=== PATIENT | male | born 1995 | race Caucasian/White ===

== ENCOUNTER 2023-08-30 09:31 | Outpatient (REF) | payer OTHER, SELFPAY ==
[2023-08-30 09:48] LABS: MANUAL DIFF FLAG NO
[2023-08-30 09:58] LABS: Basophils Percent Auto 0.6 % (0-2); Eosinophils Percent Auto 0.6 % (0-4); Hematocrit 44.2 % (42.0-52.0); Hemoglobin 15.1 g/dl (14.0-18.0); Imm Gran Abs Auto 0.02 X10*3/uL (0.00-0.03); Imm Gran Pct Auto 0.3 % (0.0-0.4); Mean Corpuscular HGB Conc 34.2 g/dl (31.0-36.0); Mean Corpuscular Hemoglobin 29.7 pg (27.0-33.0); Mean Corpuscular Volume 86.8 fL (80.0-98.0); Mean Platelet Volume 9.6 fL (9.4-12.4); Monocytes Absolute Auto 0.5 X10*3/uL (0.1-1.2); Monocytes Percent Auto 7.4 % (2-11); Neutrophils Absolute Auto 4.3 x10*3/uL (2.0-8.3); Neutrophils Percent Auto 62.1 % (45-73); Platelet Count 264 X10*3/uL (160-400); Red Blood Count 5.09 X10*6/uL (4.60-5.80); Red Cell Distribution Width 13.5 % (11.0-16.0); White Blood Count 6.9 X10*3/uL (4.8-10.8)
[2023-08-30 10:28] LABS: Alanine Aminotransferase 11 U/L (0-40); Albumin Level 4.8 g/dL (3.5-5.0); Alkaline Phosphatase 60 U/L (39-117); Anion Gap 12 (12-20); Aspartate Amino Transferase 15 U/L (5-37); Bilirubin Total 1.5 mg/dL (0.0-1.0); Blood Urea Nitrogen 11 mg/dL (9-16); Calcium 9.9 mg/dL (8.4-10.2); Carbon Dioxide 28 mmol/L (22-29); Chloride 105 mmol/L (96-108); Cholesterol 186 mg/dL (<200); Estimated Glomerular Filt Rate > 60; Glucose Fasting 97 mg/dL (60-99); HDL Cholesterol 50 mg/dL (>40); LDL Cholesterol Calculated 124 mg/dL (<100); Potassium 4.4 mmol/L (3.3-5.1); Sodium 141 mmol/L (135-145); Total Protein 7.2 g/dL (6.5-8.0); Triglycerides 63 mg/dL (<150)
[2023-09-05 16:13] LABS: Testosterone, Free 91.4 pg/mL (35.0-155.0); Testosterone, Total 601 ng/dL (250-1100)
[2023-09-07 22:39] LABS: Estrogen 132 pg/mL (< OR = 404)
== END 2023-08-30 09:32 | disposition home or self-care (01) ==
LOC: HO.LAB 09:31
PROVIDERS: PCP Internal Medicine; Visit Provider Internal Medicine
DX: Z00.00 Encounter for general adult medical examination without abnormal findings (principal); R53.83 Other fatigue; E78.5 Hyperlipidemia, unspecified
CPT/HCPCS: 36415; 80053; 80061; 82672; 84402; 84403; 85025

== ENCOUNTER 2023-09-21 10:44 | Outpatient (REF) | payer OTHER, SELFPAY ==
--- NOTE | ~2023-09-21 | US_ITS ---
EXAMINATION: MM DIAGNOSTIC DIGITAL BREAST TOMOSYNTHESIS, BILATERAL US BREAST LIMITED, LEFT MAMMOGRAPHY: CLINICAL INFORMATION: 28-year-old male, retroareolar swelling left breast. History of gynecomastia as early teenager left side, with subsequent surgical resection of left breast tissue at age 15. No abnormalities right breast. Patient also has a fraternal twin sister who has endocrine disorder. COMPARISON: Mammography: None. Baseline examination. TECHNIQUE: Digital breast tomosynthesis is performed in both the craniocaudal and mediolateral oblique views along with computer-aided detection (CAD). Synthesized 2D images are generated from the tomosynthesis. FINDINGS: The breasts are almost entirely fatty (ACR BI-RADS breast composition Category a). There is left retroareolar breast tissue development, most consistent with left gynecomastia, moderate in severity. No suspicious masses, suspicious grouped calcifications, or areas of architectural distortion in either breast. No skin or axillary abnormalities. ULTRASOUND: CLINICAL INFORMATION: As above. COMPARISON: None TECHNIQUE: Targeted sonographic evaluation retroareolar left breast was performed using a high frequency linear transducer. Selected archived documentation. FINDINGS: LEFT BREAST: -There is moderate retroareolar gynecomastia present with normal breast tissue development. No suspicious masses, abnormal shadowing, fatty masses, cystic abnormalities, or edema within the soft tissue planes. US/US breast LT limited mamm only IMPRESSION: -There are no findings suspicious for malignancy in either breast. -There is moderate gynecomastia retroareolar location left breast. -Recommend clinical management. Patient states he takes no medications. Recommend evaluation of pituitary hormones, especially prolactin level, as well as thyroid panel. -Findings and recommendations discussed with the patient in detail. OVERALL ASSESSMENT: Mammography: BI-RADS 2 - Benign Findings Ultrasound: BI-RADS 2 - Benign Findings RECOMMENDATION: 1. Patient should be managed based on the clinical impression.
== END 2023-09-21 10:45 | disposition home or self-care (01) ==
LOC: HO.MAMMO 10:44
PROVIDERS: PCP Internal Medicine; Visit Provider Internal Medicine
DX: N62 Hypertrophy of breast (principal)
CPT/HCPCS: 76642; 77062; 77066

== ENCOUNTER → 2023-09-21 11:00 | Outpatient (BNV) | payer OTHER, SELFPAY | PROVIDERS: PCP Internal Medicine; Visit Provider Radiology Diagnostic Radiology | DX: N62 Hypertrophy of breast (principal) | CPT/HCPCS: 76642; 77062; 77066 ==

== ENCOUNTER 2023-09-27 07:30 | Outpatient (REF) | payer OTHER, SELFPAY ==
[2023-09-27 09:17] LABS: Thyroid Stimulating Hormone 0.84 uIU/mL (0.32-4.0)
[2023-09-28 16:54] LABS: Prolactin 11.9 ng/mL (2.0-18.0)
[2023-10-03 13:48] LABS: Testosterone, Total 592 ng/dL (250-1100)
[2023-10-03 20:23] LABS: Estrogen 154 pg/mL (< OR = 404)
== END 2023-09-27 07:31 | disposition home or self-care (01) ==
LOC: HO.LAB 07:30
PROVIDERS: PCP Internal Medicine; Visit Provider Internal Medicine
DX: N62 Hypertrophy of breast (principal); R53.83 Other fatigue
CPT/HCPCS: 36415; 82672; 84146; 84403; 84439; 84443

== ENCOUNTER 2024-01-16 09:22 | Outpatient (AMB) | payer OTHER, SELFPAY ==
--- NOTE | 2024-01-16 09:21 | MHC.OFFVIS ---
Vital Signs 01/16/24 09:33 Height 5 ft 8 in Weight 139 lb 4 oz BMI 21.2 BP 166/97 H Blood Pressure Location Lt brachial Position Sitting Pulse 75 Intake Visit Reasons: Small subcutaneous cyst coccyx area Intake Note: Patient is seen in office for evaluation of a subcutaneous cyst coccyx area. Pt c/o:onset for yrs, discomfort and increase in size about a year ago, denies discharge, redness, warm to the touch, no antbx Crack Off Person Required: No Accompanied by: Self / Same As Patient Allergies amoxicillin [From Amoxil] Allergy (Mild, Verified 01/16/24 09:29) Rash Medication List - Last Reconciled 01/16/24 by Ac Garcia MD No Known Home Meds HPI Comments Details: 28-year-old male patient presenting with a gradually enlarging cyst located over the sacrum. The cyst is starting to cause discomfort especially when sitting for a prolonged period of time. He is uncertain if the cyst began from increased physical activity but does feel the cyst has doubled in size in the past year. He denies a previous history of infection, bleeding or discharge from the site. He is requesting excision if possible. [facility] Surgical History Hx of local excision of skin lesion Family History Maternal Grandmother Breast cancer Lung cancer Maternal Grandfather Lung cancer Prostate cancer Social History Alcohol intake: current Alcohol intake frequency: holidays/special occasions only Patient Tobacco Use Status: Never used Tobacco Review of Systems Const All systems reviewed & are unremarkable except as noted in HPI and below Denies chills, Denies fever(s), Denies headache(s), Denies poor appetite and Denies weakness ENT Denies headache(s) Card Denies chest pain, Denies irregular heart rhythm, Denies palpitations and Denies dyspnea Resp Denies cough, Denies excessive phlegm production and Denies dyspnea GI Denies abdominal pain, Denies bloating, Denies change in bowel habits, Denies constipation, Denies heartburn, Denies diarrhea, Denies nausea and Denies vomiting Denies difficulty urinating and Denies urinary frequency Musc Denies back pain, Denies muscle weakness and Denies numbness Skin/Breast Denies changing lesions and Denies unusual bruising Neuro Denies headache(s), Denies numbness, Denies paresthesias and Denies weakness Psych Denies anxiety and Denies depression Endo Denies palpitations Ruben/Lymph Denies lymphadenopathy Physical Exam Vital Signs: Last Vital Signs Pulse 75 01/16/24 09:33 BP 166/97 H 01/16/24 09:33 BMI result Body Mass Index 21.2 Const General: cooperative and no acute distress Nutritional Appearance: well nourished Orientation/consciousness: patient oriented x3 Limitations: no limitations HEENT Head: Yes normocephalic and Yes atraumatic Ears: hearing grossly normal bilaterally Resp Effort & Inspection: normal respiratory effort, no audible wheezes, no cough and no respiratory distress Cardio Jugular venous distension: no JVD GI Inspection: Yes normal to inspection Back/Spine/Pelvis Back/spine/pelvis image: 1. Smooth, round, mobile subcutaneous cystic collection with no evidence of a central punctum suggestive of a Pilar cyst or ganglion. No tenderness to palpation. Skin Other: Warm, dry, no rash Neuro General: patient oriented x3 Extrem General: Yes no clubbing, cyanosis or edema Assessment & Plan Assessment & Plan (1) Cyst of subcutaneous tissue: Code(s): L72.9 - Follicular cyst of the skin and subcutaneous tissue, unspecified Category: Medical Plan 28-year-old male patient presenting with a subcutaneous cyst located over the sacrum/coccyx which is increasing in size and now causing some mild discomfort. Patient is requesting excision and after discussion of the procedure, risks, and alternatives, he consents to excision of the cyst of the low back. This will be scheduled as a minor surgery under local anesthesia. Coding Level of Care Code New Pt Level 4 (15326) Diagnoses Cyst of subcutaneous tissue L72.9
[2024-01-16 09:33] VITALS: BP 166/97; PULSE 75; BMI 21.2
== END 2024-01-16 09:36 | disposition home or self-care (01) ==
PROVIDERS: PCP Internal Medicine; Referring Provider Internal Medicine; Visit Provider Surgery
DX: L72.9 Follicular cyst of the skin and subcutaneous tissue, unspecified (principal)
CPT/HCPCS: 99204

== ENCOUNTER → 2024-01-16 09:22 | Outpatient (BNVA) | payer OTHER, SELFPAY | PROVIDERS: PCP Internal Medicine; Referring Provider Internal Medicine; Visit Provider Surgery | DX: L72.9 Follicular cyst of the skin and subcutaneous tissue, unspecified (principal) | CPT/HCPCS: 99202 ==

== ENCOUNTER 2024-01-30 | Outpatient (REF) | payer OTHER, SELFPAY ==
[2024-01-30 13:44] VITALS: BP 149/72; PULSE 66; RESP 17; TEMP 36.6; O2SAT 99; BMI 21.3
--- NOTE | 2024-01-30 14:27 | P.OP_ITS ---
Operative Note Operative Note Date of Service: 01/30/24 Narrative: Preoperative diagnosis: Cyst of of subcutaneous tissue intergluteal cleft Postoperative diagnosis: Same Procedure: Excision of cyst subcutaneous tissue intergluteal cleft Surgeon: Ac Garcia MD Biological Photographer: None Anesthesia: Lidocaine 1% with epinephrine Indications for procedure: 28-year-old male patient presenting with a palpable painful cystic appearing lesion in the intergluteal cleft measuring appr oximately 1 cm in diameter. No overlying skin changes are noted. Operative findings: 1 cm firm lesion suggestive of a neuroma Specimen: Assist subcutaneous tissue intergluteal cleft Estimated blood loss: 2 cc Complications: None Procedure details: Patient was brought to the minor surgery suite and placed in a prone position. The site of surgery was confirmed by the patient in the inter gluteal cleft. After assuring informed consent the skin was prepped with Betadine and draped in a sterile fashion. Local anesthesia was then infiltrated around the lesion. A midline incision was made with a scalpel carried out through subcutaneous tissue up to the lesion. Sharp dissection was then used to excise the lesion from the surrounding subcutaneous tissue. Hemostasis was assured using light pressure. The lesion was passed off the table and sent to pathology for further examination. Skin was then closed using interrupted 4-0 nylon sutures. Sterile dressings consisting of 2 x 2 gauze and Tegaderm were then applied. The patient tolerated the procedure well. He was discharged in stable condition.
== END 2024-01-31 08:24 | disposition home or self-care (01) ==
LOC: HO.MS
PROVIDERS: PCP Internal Medicine; Visit Provider Surgery
PROC: (CPT 11401; principal; 2024-01-30 14:00)
DX: D36.10 Benign neoplasm of peripheral nerves and autonomic nervous system, unspecified (principal)
CPT/HCPCS: 11401; 88304; J2004

== ENCOUNTER → 2024-01-30 14:00 | Outpatient (BNV) | payer OTHER, SELFPAY | PROVIDERS: PCP Internal Medicine; Visit Provider Surgery | DX: L72.3 Sebaceous cyst (principal) | CPT/HCPCS: 11401 ==

== ENCOUNTER 2024-02-09 11:03 | Outpatient (AMB) | payer OTHER, SELFPAY ==
--- NOTE | 2024-02-09 11:12 | MHC.OFFVIS ---
Vital Signs 02/09/24 11:20 Height 5 ft 8 in Weight 145 lb BMI 22.0 BP 156/95 H Blood Pressure Location Lt brachial Position Sitting Pulse 80 Intake Visit Reasons: S/P excision of cyst low back Intake Note: Patient is seen in office for post op assessment post excision of cyst subcutaneous tissue intergluteal cleft. Pt c/o: denies any concerns healing as expected surgery:01/30/24 Assistant Sales Manager Required: No Accompanied by: Self / Same As Patient Allergies amoxicillin [From Amoxil] Allergy (Mild, Verified 02/09/24 11:19) Rash HPI Comments Details: Patient returns 1 week following excision of a mass in the intergluteal cleft. Pathology revealed a schwannoma. He was provided with a copy of the report. He tolerated the procedure well and returns today for suture removal. [facility] Surgical History (Updated 02/08/24 @ 16:40 by JANAK Villa) Hx of removal of cyst (01/30/24) Hx of local excision of skin lesion Family History Maternal Grandmother Breast cancer Lung cancer Maternal Grandfather Lung cancer Prostate cancer Social History Alcohol intake: current Alcohol intake frequency: holidays/special occasions only Patient Tobacco Use Status: Never used Tobacco Physical Exam Back/Spine/Pelvis Other: Incision in the intergluteal cleft is clean, dry, and intact. There is some swelling suggestive of an underlying seroma but no evidence of infection. Sutures removed and Steri-Strips applied. Back/spine/pelvis image: 1. Assessment & Plan Assessment & Plan (1) Schwannoma of nerve of trunk: Code(s): D36.17 - Benign neoplasm of peripheral nerves and autonomic nervous system of trunk, unspecified Category: Medical Plan Patient tolerated procedure well and his wounds are healing nicely. She should follow up as needed. Coding Level of Care Code Global (61613) Diagnoses Schwannoma of nerve of trunk D36.17
[2024-02-09 11:20] VITALS: BP 156/95; PULSE 80; BMI 22.0
== END 2024-02-09 11:57 | disposition home or self-care (01) ==
PROVIDERS: PCP Internal Medicine; Visit Provider Surgery
DX: D36.17 Benign neoplasm of peripheral nerves and autonomic nervous system of trunk, unspecified (principal)
CPT/HCPCS: 99024

== ENCOUNTER → 2024-02-09 11:03 | Outpatient (BNVA) | payer OTHER, SELFPAY | PROVIDERS: PCP Internal Medicine; Visit Provider Surgery | DX: Z09 Encounter for follow-up examination after completed treatment for conditions other than malignant neoplasm (principal); Z87.2 Personal history of diseases of the skin and subcutaneous tissue; Z98.890 Other specified postprocedural states | CPT/HCPCS: 99212 ==